=== PATIENT | male | born 2000 | race African-American/Black ===

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

== ENCOUNTER 2020-08-04 16:02 | Emergency (ER) | payer OTHER ==
[~2020-08-04] VITALS: Ht 182.9 cm; Wt 76.2 kg
[~2020-08-04 16:02] MED LIST: IBU800 MG PO
[2020-08-04 17:04] LABS: ABSOLUTE LYMPHOCYTES 1.4 thou/uL (0.8-5.3); ABSOLUTE MONOCYTES 0.4 thou/uL (0.0-1.2); ABSOLUTE NEUTROPHILS 2.6 thou/uL (1.6-8.1); BASOPHILS 0.9 %; EOSINOPHILS 0.7 %; HEMATOCRIT 44.5 % (42.0-52.0); HEMOGLOBIN 15.2 gm/dL (14.0-18.0); LYMPHOCYTES 31.9 %; MCH 30.3 pg (26.0-34.0); MCHC 34.1 g/dL (28.0-37.0); MONOCYTES 8.6 %; MPV 8.1 fl. (7.2-11.1); NUCLEATED RBCS 0 /100WBC; PLATELET COUNT* 153 thou/uL (150-400); POLYS 57.9 %; RDW-CV 12.9 % (10.5-14.5); WBC 4.5 thou/uL (4.0-11.0)
[2020-08-04 17:21] LABS: ALBUMIN 3.8 g/dL (3.4-5.0); CREATININE 1.4 mg/dL (0.6-1.3); POTASSIUM 4.3 mmol/L (3.5-5.1); TOTAL BILIRUBIN 0.2 mg/dL (<0.1-1.0); TOTAL PROTEIN 7.1 g/dL (6.4-8.2)
[2020-08-04 17:27] LABS: CALCIUM 8.4 mg/dL (8.5-10.1)
[2020-08-04] MEDS ORDERED: VENTOLIN HFA 1818 GM INH (17:47)
[2020-08-04] MEDS ORDERED: PREDNISONE 20 M20 MG PO (17:47)
[2020-08-04] MEDS ORDERED: ZPAK PO (17:47)
[2020-08-04 18:13] VITALS: BP 118/65
--- NOTE | 2020-08-05 11:17 | EKG ---
[place] [address] ELECTROCARDIOGRAM REPORT Name: LISBET ANTUNEZ JR Room: [facility]#: [id number] Admission: 08/04/20 Attend Phys: Discharge: 08/04/20 Date of : [birth year] Date of Service: 08/04/20 1723 Report #: [id number] THIS REPORT FOR: //name// 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[facility] : 2000 Requested By: Katarina Murphy Order Number: [id number] MD: Ke Vu Measurements Intervals [place] Rate: 52 P: 46 UT: 142 QRS: 49 QRSD: 89 T: 59 QT: 403 QTc: 375 Interpretive Statements Sinus bradycardia Borderline low voltage, extremity leads ST elev, probable normal early repol pattern No previous ECG available for comparison Electronically Signed On 08-05-2020 11:17:15 CDT by Ke Vu [email or web address] <ELECTRONICALLY SIGNED> By: Ke Vu MD, FAC 08/05/20 1117 1723 1723 Ke Vu MD, [facility] /EPI
== END 2020-08-04 18:14 | disposition home or self-care (01) ==
LOC: M.ERS 16:02
PROVIDERS: Nurse Practitioner Family
DX: R07.89 Other chest pain (principal); R06.02 Shortness of breath; E86.0 Dehydration; F41.9 Anxiety disorder, unspecified; K21.9 Gastro-esophageal reflux disease without esophagitis

== ENCOUNTER 2020-08-07 14:17 | Emergency (ER) | payer OTHER ==
[~2020-08-07] VITALS: Ht 182.9 cm; Wt 63.5 kg
[~2020-08-07 14:17] MED LIST changes: +PREDNISONE 20 M20 MG PO; +VENTOLIN HFA 1818 GM INH; +ZPAK PO
[2020-08-07] MEDS ORDERED: APAP W/CODEINE1 TA2 PO (15:13)
[2020-08-07 15:20] VITALS: BP 147/66
== END 2020-08-07 15:20 | disposition home or self-care (01) ==
LOC: M.ERS 14:17
DX: U07.1 COVID-19 (principal); R07.89 Other chest pain; K21.9 Gastro-esophageal reflux disease without esophagitis